=== PATIENT | male | born 1940 | race Caucasian/White ===

== ENCOUNTER 2016-06-23 07:43 | Day surgery (SDC) | payer MEDICARE ==
[~2016-06-23 07:43] MED LIST: FENTANYL 250 MCG/5 ML AMP IV PRN; IV START KIT ONE; LACTATED RINGERS 1,000 ML IV SCH; LACTATED RINGERS 1,000 ML ONE; MIDAZOLAM HCL 5 MG/5 ML VIAL IV PRN
[2016-06-23] MEDS ORDERED: FENTANYL 5 ML ONE (09:15)
[2016-06-23] MEDS ORDERED: MIDAZOLAM HCL 5 MG/5 ML VIAL ONE (09:15)
== END 2016-06-23 10:33 | disposition home or self-care (01) ==
LOC: SDC 07:43
PROVIDERS: ATTEND Internal Medicine Gastroenterology
PROC: 0DJD8ZZ Inspection of Lower Intestinal Tract, Via Natural or Artificial Opening Endoscopic (ICD-10-PCS; principal; 2016-06-23)
DX: Z12.11 Encounter for screening for malignant neoplasm of colon (principal); Z79.82 Long term (current) use of aspirin; R93.3 Abnormal findings on diagnostic imaging of other parts of digestive tract